=== PATIENT | male | born 1970 | race Caucasian/White ===

== ENCOUNTER 2021-06-25 14:41 | Emergency (ER) | payer SELFPAY ==
--- OUTSIDE RECORDS SUMMARY | 2021-06-25 14:44 | XMS REPORT | Continuity of Care Document ---
:1970 Author Organization [facility] t Address [address] [place] [address] Care Team Providers Name Role Phone Joshua Keith Primary Care Physician CARMEN Attending Clinician Unavailable LAMAR Attending Clinician Unavailable Mikey VILLALOBOS Attending Clinician Unavailable JANELLE WEEKS Attending Clinician Unavailable MALIK Attending Clinician Unavailable Hollis FERRARO Attending Clinician MARY Attending Clinician Unavailable TRELL Attending Clinician Unavailable TRELL Admitting Clinician Unavailable Payers Payer Name Policy Type Policy Number Effective Date Expiration Date S ource Problems Condition Condition Condition Status Onset Resolution Last Treating Co mments Source Name Details Category Date Date Treatment Clinician Date Nondisplac Nondisplac Disease Active U T ed ed 2-15 Health bimalleola bimalleola 00:00: r fracture r fracture 00 of left of left lower leg, lower leg, open type open type I or II, I or II, initial initial encounter encounter Allergies, Adverse Reactions, Alerts Allergy Allergy Status Severity Reaction(s) Onset Inactive Treating Comm ents Source Name Type Date Date Clinician No Known DA Active U [facility] All[facility]ie 06-08 Jimmy guardado 00:00: d 00 [facility] No Known DA Active [facility] All[facility] 06-08 Jimmy guardado 00:00: d [facility] Social History Social Habit Start Date Stop Date Quantity Comments Source Exposure to SARS-CoV-2 Not sure [facility] (event) Sex Assigned At [birth year] M [facility] 00:00:00 00:00:00 Smoking Status Start Date Stop Date Source Tobacco smoking consumption unknown [facility] Medications Ordered Filled Start Stop Current Ordering Indication Dosage Frequency Signature Comments Components Source Medication Medication Date Date Medication? Clinician (SIG) Name Name sulfamethox 2021- Yes [id number] 1{tbl} Q.5D Take 1 UT azole-trime 05-16 03-20 tablet by He alth thoprim 00:00: 04:59 mouth 2 (Bactrim 00 :00 (two) DS) 800-160 times a MG tablet day for 10 days. traMADol Yes [id number] TAKE 1 UT (Ultram) 50 3-01 TABLET BY Hea lth MG tablet 00:00: MOUTH 00 EVERY 6 HOURS. ALTERNATE WITH TYLENOL traMADol Yes [id number] 50mg Q6H Take 1 UT (Ultram) 50 2-16 tablet (50 He alth MG tablet 00:00: mg total) 00 by mouth every 6 (six) hours. Alternate with Tylenol methocarbam Yes [id number] 750mg Q.83255877 Take 1 UT ol 2-16 [id number] tablet Health (Robaxin) 00:00: 3D (750 mg 750 MG 00 total) by tablet mouth 3 (three) times a day for 10 days. methocarbam Yes [id number] 750mg Q.93019379 Take 1 UT ol 2-16 [id number] tablet Health (Robaxin) 00:00: 3D (750 mg 750 MG 00 total) by tablet mouth 3 (three) times a day for 10 days. methocarbam 2021- Yes [id number] 750mg Q.94172232 Take 1 UT ol 2-16 -27 [id number] tablet Health (Robaxin) 00:00: 05:59 3D (750 mg 750 MG 00 :00 total) by tablet mouth 3 (three) times a day for 10 days. acetaminoph 2021- Yes [id number] 1{tbl} Q6H Take 1 UT en-codeine 04-18 tablet by [facility] (Tylenol w/ 00:00: 05:59 mouth Codeine #3) 00 :00 every 6 300-30 MG (six) tablet hours if needed for severe pain for up to 7 days. acetaminoph 2021- Yes [id number] 1{tbl} Q6H Take 1 UT en-codeine 04-18 tablet by [facility] (Tylenol w/ 00:00: 05:59 mouth Codeine #3) 00 :00 every 6 300-30 MG (six) tablet hours if needed for severe pain for up to 7 days. HYDROcodone 2021- Yes [id number] 1{tbl} Q6H Take 1 UT -acetaminop 04-11 tablet by [facility] 00:00: 05:59 mouth 5-325 MG 00 :00 every 6 tablet (six) hours if needed for severe pain for up to 5 days. Procedures This patient has no known procedures. Encounters Start End Encounter Admission Attending Care Care Encounter Source Date/Time Date/Time Type Type Clinicians Facility Department ID 2021-06-06 Outpatient [facility] [id number] [place] 07:31:21 [place] [id number] [facility] 2021-06-04 Outpatient [facility] [id number] [place] 12:19:47 [place] [id number] [facility] 2021-05-11 Outpatient [facility] [id number] [place] 08:44:16 [facility] 2021-04-25 Outpatient [facility] [id number] [place] 12:27:43 [facility] 2021-04-06 Outpatient [facility] [id number] [place] 15:18:55 [facility] 2020-06-08 Inpatient HCAKW TREY [id number] [facility] 10:50:00 [address] [facility] 2021-06-25 2021-06-25 Telephone Bushra Jensen [id number] [place] 00:00:00 00:00:00 Bushra Jensen [id number] [facility] [id number] 1 2021-05-25 2021-05-25 Outpatient CARMEN, [id number] [facility] 07:51:00 23:59:00 BONITA 2021-05-16 2021-05-16 Office DEACON NUNEZ 6414 [id number] [place] 12:15:00 12:30:[address] [id number] Health [id number] 1 2021-04-25 2021-04-25 Office DEACON Shafer 6414 [id number] [place] 12:45:00 12:45:00 Visit Sarai FELICIANO [id number] Health [id number] 1 2021-04-18 2021-04-18 Office DEACON Nunez 6414 [id number] [place] 10:00:00 10:05:33 Visit Ann Marie FELICIANO [id number] Health [id number] 1 2021-04-11 2021-04-11 Office DEACON Weeks 6414 [id number] [place] 10:15:00 10:27:43 Visit Bonita FELICIANO [id number] Health [id number] 1 2021-04-06 2021-04-06 Telephone DEACON Smith 6400 [id number] [place] 00:00:00 00:00:00 Saman FELICIANO [id number] Health [id number] 2 2021-04-03 2021-04-03 Telephone DEACON Smith 6400 [id number] [place] 00:00:00 00:00:00 Saman FELICIANO [id number] Health [id number] 2 2019-06-23 2019-06-23 [facility] 064 [id number] [place] 00:00:00 00:00:00 JOHN Young[address] [facility] [address] 2019-05-28 2019-05-30 Inpatient TRELL [facility] 064 [id number] 2750 [place] 00:00:00 00:00:00 [place] [address] Results Test Description Test Time Test Comments Results Result Comments Source - XR CHEST 1 V 2020-06-08 13:20:00 [facility] 1970 Sex: M [place]: St: REG Name: PABLO THOMPSON [facility] : 1970 Age/S: 50/M [address] Unit #: [id number] Loc: [place] [address] Phys: Brant Hankins MD Acct: [id number] Dis Date: Status: REG ER PHONE #: [phone] Exam Date: 06/08/2020 1310 FAX #: [phone] Reason: cp EXAMS: CPT CODE: [id number] XR CHEST 1 V 07071 HISTORY: Chest pain. Location: C3 COMPARISON:None FINDINGS: Heart size and vascularity are within normal limits. The lungs are clear of focal consolidation. No effusion, pneumothorax, or acute osseous abnormality. IMPRESSION: 1. No focal consolidation. No other acute abnormalities. at 1320 Reported and signed by: John Calvillo MD CC: Technologist: GEOFF RAMIREZ; LUÍS CABRALES Trnscrd Date/Time/By: 06/08/2020 (8098) : By: [email or web address] PAGE 1 Signed Report [place]: St: REG Name: PABLO THOMPSON [place] : 1970 Age/S: 50/M [address] Unit #: [id number] Loc: [place] [address] Phys: Brant Hankins MD Acct: [id number] Dis Date: Status: REG ER PHONE #: [phone] Exam Date: 06/08/2020 1310 FAX #: [phone] Reason: cp EXAMS: CPT CODE: [id number] XR CHEST 1 V 12256 <Continued> Orig Print D/T: S: 06/08/2020 (7124) PAGE 2 Signed Report COMPREHENSIVE METABOLIC PANEL 2020-06-08 12:57:00 Test Item Value Reference Range Interpretation Comme nts SODIUM (test code = NA) 140 mmol/L 137-145 N POTASSIUM (test code = K) 3.7 mmol/L 3.4-5.0 N CHLORIDE (test code = CL) 101 mmol/L 98-107 N CARBON DIOXIDE (test code = 33 mmol/L 22-30 H CO2) GLUCOSE (test code = GLU) 106 mg/dL 74-106 N BLOOD UREA NITROGEN (test code 13 mg/dL 9-20 N = BUN) GLOMERULAR FILTRATION RATE 126 >60 T he estimated glomerular (test code = GFR) filtration rate is computed usingpatient ra ce, age (>18), sex, and serum creatinine. If anyof the neede d data elements are missing the Laboratory cannot compute an rizwan mation of the glomerular filt ration rate. CREATININE (test code = CREAT) 0.7 mg/dL 0.7-1.3 N TOTAL PROTEIN (test code = 7.2 g/dL 6.3-8.2 N * PROT) "A positive bias m ay occur for patients taking Eltrombopag(a bone marrow sti mulant used to treat thrombocy topenia andaplastic anemia)." ALBUMIN (test code = ALB) 4.1 g/dL 3.5-5.0 N CALCIUM (test code = CA) 9.1 mg/dL 8.4-10.2 N BILIRUBIN TOTAL (test code = 0.8 mg/dL 0.2-1.3 N "A positive bias may occur for BILT) patients taking Eltrombopag(a bone marrow sti mulant used to treat thrombocy topenia andaplastic ane pao)." BILIRUBIN CONJUGATED (test 0 mg/dL 0-0.3 N " A positive bias may occur for code = BILCON) patients taki ng Eltrombopag(a bone marrow sti mulant used to treat thrombocy topenia andaplastic ane pao)." CONJUG ATED BILIRUBIN IS THE REPLACEMENT ASSAY FOR DIRECTBILIRUBIN . BILIRUBIN UNCONJUGATED (test 0.6 mg/dL 0-1.1 N code = BILUNC) SGOT/AST (test code = AST) 33 U/L 15-46 N SGPT/ALT (test code = ALT) 27 U/L 0-34 N ALKALINE PHOSPHATASE (test 55 U/L 38-126 N code = ALKP) TROPONIN I [id number] 12:51:00 Test Item Value Reference Range Interpretation Comments TROPONIN I RAPID 0.00 ng/mL 0.00-0.079 N ISTAT (test code = TROPONIN I TROPIRAP) CRITERIA0.00-0. 08 ng/mL - Negative>0.08 n g/mL - Positive The us e of serial sampling and te sting protocol is are commended practice.An betty vated troponin level alone is often not suffi cient fordiagnosis of myocardial infarction. Tro ponin results obtaine d by different assay s may vary.Evaluation of the extent of myoca rdial damage based on increase of troponin would be valid only if similar methodology is used. PROTHROMBIN [id number] 12:49:00 Test Item Value Reference Range Interpretation Comments PROTHROMBIN TIME 11.5 SECONDS 9.2-12.1 N PATIENT (test code = PTP) INTERNATIONAL NORMAL 1.0 The INR is to be used RATIO (test code = only for monitoring INR) ORAL ANTICOAGULANTTH ERAPY. Indicati on INR Value1. Prophylaxis/zaid atment of: Venous Thrombosis, Pul monary Embolism 2.0 - 3.02. Preventi on of systemic emboli sm from: Tiss ue heart valves 2.0 - 3.0 Acute myocardial infa rction (to present systemic emboli sm)* 2.0 - 3.0 Valvular heart disease 2.0 - 3.0 Atrial fibrillation 2.0 - 3.03. Final Inspection Supervisor al prosthetic valv es (high risk) 2.5 - 3.5 * If oral anticoagulant t herapy is elected to preventrecurren t myocardial infa rction, an INR of 2.5-3 .5 isrecommended, consistent with Food and Drug Administrationr ecommen dations. THROMBOPLASTIN TIME [id number] 12:49:00 Test Item Value Reference Range Interpretation Comments THROMBOPLASTIN TIME 31.1 SECONDS 23.4-37.0 N Therap eutic Range PARTIAL (test code = for Hep bowen PTT) EFFECTIVE 7/10/ 13 Heparin IU/mL aPT T Seconds0.3 64.30.7 88.8 COMPREHENSIVE METABOLIC [id number] 12:49:00 Test Item Value Reference Range Interpretation Comments SODIUM (test code = 140 mmol/L 137-145 N NA) POTASSIUM (test code 3.7 mmol/L 3.4-5.0 N = K) CHLORIDE (test code 101 mmol/L 98-107 N = CL) CARBON DIOXIDE (test 33 mmol/L 22-30 H code = CO2) GLUCOSE (test code = 106 mg/dL 74-106 N GLU) BLOOD UREA NITROGEN 13 mg/dL 9-20 N (test code = BUN) GLOMERULAR 126 >60 The estimated FILTRATION RATE glomerular f iltration (test code = GFR) rate is co mputed usingpatient ra ce, age (>18), sex, and serum creatinine. If anyof the needed data elements are mi ssing the Laboratory cannot compute an rizwan mation of the glomerul ar filtration rate . CREATININE (test 0.7 mg/dL 0.7-1.3 N code = CREAT) TOTAL PROTEIN (test 7.2 g/dL 6.3-8.2 N code = PROT) " A positive bias m ay occur for patients ta trina Eltrombopag(a b one marrow stimulan t used to treat thrombocytopeni a andaplastic anemia)." ALBUMIN (test code = 4.1 g/dL 3.5-5.0 N ALB) CALCIUM (test code = 9.1 mg/dL 8.4-10.2 N CA) BILIRUBIN TOTAL 0.8 mg/dL 0.2-1.3 N "A positive bias may (test code = BILT) occur for patients taking Eltrombo pag(a bone marrow sti mulant used to treat thrombocytopeni a andaplastic ane pao)." BILIRUBIN CONJUGATED 0 mg/dL 0-0.3 N "A posi tive bias may (test code = BILCON) occur f or patients taking Eltrombo pag(a bone marrow sti mulant used to treat thrombocytopeni a andaplastic ane pao)." C ONJUGATE D BILIRUBIN IS THE REPLACEMENT ASS AY FOR DIRECTBILIRUBIN . BILIRUBIN 0.6 mg/dL 0-1.1 N UNCONJUGATED (test code = BILUNC) SGOT/AST (test code 33 U/L 15-46 N = AST) SGPT/ALT (test code U/L 0-34 = ALT) ALKALINE PHOSPHATASE 55 U/L 38-126 N (test code = ALKP) CBC W/AUTO [id number] 12:37:00 Test Item Value Reference Range Interpretation Comments WHITE BLOOD CELL (test code = 8.9 x10 3/uL 5.0-12.0 N WBC) RED BLOOD CELL (test code = 5.18 x10 6/uL 4.70-6.10 N RBC) HEMOGLOBIN (test code = HGB) 16.8 g/dL 14.0-18.0 N HEMATOCRIT (test code = HCT) 49.4 % 37.0-49.0 H MEAN CELL VOLUME (test code = 95 fL 80-94 H MCV) MEAN CELL HGB (test code = MCH) 32.4 pg 27-31 H MEAN CELL HGB CONCENTRATION 34.0 g/dL 33-37 N (test code = MCHC) RED CELL DISTRIBUTION WIDTH 13.3 % 11.5-15.5 N (test code = RDW) PLATELET COUNT (test code = 244 x10 3/uL 130-400 N PLT) MEAN PLATELET VOLUME (test code 10.5 fL 9.4-16.4 N = MPV) NEUTROPHIL % (test code = NT%) 78.4 % 43-65 H IMMATURE GRANULOCYTE % (test 0.3 % 0.0-2.0 N code = IG%) LYMPHOCYTE % (test code = LY%) 15.6 % 20.5-45.5 L MONOCYTE % (test code = MO%) 5.5 % 5.5-11.7 N EOSINOPHIL % (test code = EO%) 0.0 % 0.9-2.9 L BASOPHIL % (test code = BA%) 0.2 % 0.2-1.0 N NUCLEATED RBC % (test code = 0.0 % 0-1.0 N NRBC%) NEUTROPHIL # (test code = NT#) 6.96 x10 3/uL 2.2-4.8 H IMMATURE GRANULOCYTE # (test 0.03 x10 3/uL 0-0.03 N code = IG#) LYMPHOCYTE # (test code = LY#) 1.39 x10 3/uL 1.3-2.9 N MONOCYTE # (test code = MO#) 0.49 x10 3/uL 0.3-0.8 N EOSINOPHIL # (test code = EO#) 0.00 x10 3/uL 0.0-0.2 N BASOPHIL # (test code = BA#) 0.02 x10 3/uL 0.0-0.1 N
[2021-06-25] MEDS ORDERED: HYDROCODONE/APAP 10/325 TAB ONE (16:13)
--- NOTE | 2021-06-25 18:08 | ER ---
Nurse's Notes [facility] Name: Juancho Kohler Age: 51 yrs Sex: Male : 1970 Arrival Date: 06/25/2021 Time: 14:43 Bed 5 Private MD: Diagnosis: Left foot chronic wound Presentation: 06/25 15:49 Chief complaint: Patient states: Injury L foot in March which required sx, states ph that he feels like the wound looks infected, reports redness and purulent drainage from top of foot, no fever. Coronavirus screen: Vaccine status: Patient reports being unvaccinated. Ebola Screen: No symptoms or risks identified at this time. Initial Sepsis Screen: Does the patient meet any 2 criteria? No. Patient's initial sepsis screen is negative. Does the patient have a suspected source of infection? No. Patient's initial sepsis screen is negative. Risk Assessment: Do you want to hurt yourself or someone else? Patient reports no desire to harm self or others. Onset of symptoms was June 25, 2021. 15:49 Method Of Arrival: Wheelchair 15:49 Acuity: BENJA 3 ph Triage Assessment: 15:53 General: Appears in no apparent distress. Behavior is calm, cooperative, Denies fever. ph Pain: Complains of pain in left foot. Historical: - Allergies: 15:52 No Known Allergies; ph - PMHx: 15:52 Hypertensive disorder; Hypercholesterolemia; Anxiety; ph - PSHx: 15:52 L foot sx; ph - Immunization history:: Adult Immunizations unknown. - Social history:: Smoking status: Patient reports the use of cigarette tobacco products, smokes one pack cigarettes per day. Screenin:11 Abuse screen: Denies threats or abuse. Nutritional screening: No deficits noted. ap3 Tuberculosis screening: No symptoms or risk factors identified. Fall Risk Fall in past 12 months (25 points). Secondary diagnosis (15 points) impaired mobility, No IV (0 pts). Ambulatory Aid- None/Bed Rest/Nurse Assist (0 pts). Gait- Impaired (20 pts.). Mental Status- Oriented to own ability (0 pts). Assessment: 16:43 Derm: Wound noted left foot. ap3 17:46 Reassessment: wound care nurse completed assessment and dressing change. ap3 Vital Signs: 15:49 BP 111 / 76; Pulse 84; Resp 18; Temp 98.9; Pulse Ox 98% on R/A; Weight 102.06 kg; ph Height 6 ft. 1 in. (185.42 cm); 15:49 Body Mass Index 29.68 (102.06 kg, 185.42 cm) ED Course: 14:43 Patient arrived in ED. mr 14:58 Clifton Hanson NP is PHCP. pm1 14:58 Valentín Minor DO is Attending Physician. pm1 15:52 Triage completed. ph 15:53 Arm band placed on Patient placed in an exam room. ph 16:13 Patient has correct armband on for positive identification. Bed in low position. Call ap3 light in reach. Side rails up X 1. Adult w/ patient. Pulse ox on. NIBP on. Door closed. Noise minimized. 18:18 No provider procedures requiring assistance completed. Patient did not have IV access ap3 during this emergency room visit. Administered Medications: 16:11 Drug: [place] (HYDROcodone-acetaminophen) 10 mg-325 mg 1 tabs Route: PO; ap3 18:18 Follow up: Response: No adverse reaction ap3 Outcome: 18:07 Discharge ordered by MD. pm1 18:18 Discharged to home via wheelchair. ap3 18:18 Condition: good 18:18 Discharge instructions given to patient, Instructed on discharge instructions, follow up and referral plans. medication usage, wound care, Demonstrated understanding of instructions, follow-up care, medications, wound care, Prescriptions given X 2. 18:20 Patient left the ED. ap3 Signatures: Merle Quinonez mr Patricia Rehman RN RN Clifton Hanson NP PROPERTY CUSTODIAN pm1 Karen Dumont RN RN ap3
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
[2021-06-25 22:38] VITALS: BP 111/76; TEMP 98.9; O2SAT 98
== END 2021-06-25 18:20 | disposition home or self-care (01) ==
LOC: ER 14:41
DX: S91.312S Laceration without foreign body, left foot, sequela (principal); I10 Essential (primary) hypertension; F17.210 Nicotine dependence, cigarettes, uncomplicated
CPT/HCPCS: 99251; 99283